=== PATIENT | male | born 1985 | race Caucasian/White ===

== ENCOUNTER 2019-04-20 16:20 | Emergency (ER) | payer OTHER ==
[2019-04-20] MEDS: IBUPROFEN 800 MG TAB PO (17:54)
== END 2019-04-20 19:18 | disposition home or self-care (01) ==
LOC: FTE 16:20
DX: S92.355A Nondisplaced fracture of fifth metatarsal bone, left foot, initial encounter for closed fracture (principal); F84.0 Autistic disorder; X50.1XXA Overexertion from prolonged static or awkward postures, initial encounter; Y92.9 Unspecified place or not applicable
CPT/HCPCS: 29515; 73610; 99283-25